=== PATIENT | female | born 1955 | race Two or more races ===

== ENCOUNTER 2017-05-08 07:51 | Outpatient (CLI) | payer OTHER | END 2017-05-08 08:02 | disposition home or self-care (01) | LOC: SONOGRAMA 07:51 → MAMO-SONO 08:45 | DX: N84.0 Polyp of corpus uteri (principal); N60.12 Diffuse cystic mastopathy of left breast; N60.11 Diffuse cystic mastopathy of right breast; E66.3 Overweight; M89.9 Disorder of bone, unspecified; Z80.0 Family history of malignant neoplasm of digestive organs ==

== ENCOUNTER 2018-04-15 10:12 | Outpatient (CLI) | payer OTHER | END 2018-04-15 17:00 | disposition home or self-care (01) | LOC: RAD 10:12 → MAMO-SONO 10:45 → RAD 17:00 | DX: N39.3 Stress incontinence (female) (male) (principal); N84.0 Polyp of corpus uteri ==